=== PATIENT | female | born 1970 | race Asian ===

== ENCOUNTER 2018-06-09 09:46 | Emergency (ER) | payer SELFPAY | END 2018-06-09 10:05 | disposition left against medical advice (07) | LOC: ED 09:46 | DX: Z53.21 Procedure and treatment not carried out due to patient leaving prior to being seen by health care provider (principal) ==

== ENCOUNTER 2018-06-09 10:18 | Emergency (ER) | payer OTHER ==
[~2018-06-09] VITALS: Ht 160 cm; Wt 56.4 kg
[2018-06-09 10:26] VITALS: Ht 160 cm; Wt 56.4 kg
[2018-06-09 11:56] VITALS: BP 148/91
== END 2018-06-09 11:56 | disposition home or self-care (01) ==
LOC: ED 10:18
DX: S91.341A Puncture wound with foreign body, right foot, initial encounter (principal); W27.3XXA Contact with needle (sewing), initial encounter; Y93.89 Activity, other specified; Y92.89 Other specified places as the place of occurrence of the external cause; Y99.8 Other external cause status